=== PATIENT | male | born 1990 | race Hispanic/Latino ===

== ENCOUNTER 2018-10-25 01:54 | Emergency (ER) | payer OTHER ==
[~2018-10-25] VITALS: Ht 182.9 cm; Wt 108.9 kg
[2018-10-25] MEDS ORDERED: TETANUS/DIPHTHERIA TOX ADULT 0.5 ML SYR ONE (02:09)
[2018-10-25] MEDS ORDERED: TETANUS/DIPHTHERIA TOX ADULT 0.5 ML SYR IM ONE (02:15)
--- NOTE | 2018-10-25 02:50 | Diagnostic Imaging Report ---
CT BRAIN WO, CT CERVICAL SPINE WO HISTORY: Trauma COMPARISON: None. TECHNIQUE: Axial noncontrast CT images were obtained through the head and cervical spine. Coronal and sagittal reconstructions obtained from the axial data. One or more of the following dose reduction techniques were used: Automated exposure control, adjustment of the mA and/or kV according to patient size, and/or utilization of iterative reconstruction technique. DISCUSSION: HEAD CT: Scalp/Skull: Unremarkable. Brain sulci: Appropriate for patient's age. Ventricles: Normal in size and configuration. No hydrocephalus. Extra-axial spaces: No masses or fluid collections. Parenchyma: No abnormal densities. No masses, hemorrhage, or large vascular territory acute infarct. Dural sinuses: No abnormal densities. Sellar/Suprasellar region: Intact. Skull base: Intact. Incidental findings: None. CERVICAL SPINE CT: Cervical lordosis is straightened. There is no scoliosis or subluxation. No fractures, compression deformity, or destructive osseous lesions are seen. The craniocervical junction is intact. No gross spinal canal masses are seen. The paravertebral and paraspinal soft tissues are unremarkable. The disc spaces are preserved. Incidental findings: None. IMPRESSION: Head CT: No intracranial abnormalities. Cervical Spine CT: No acute osseous abnormalities in the cervical spine. Signed by: Dr. Malcolm Toro M.D. on 10/25/2018 2:46 AM
[2018-10-25] MEDS ORDERED: HYDROCODONE/APAP 10MG-325MG TAB ONE (03:06)
[2018-10-25] MEDS ORDERED: HYDROCODONE/APAP 10MG-325MG TAB PO ONE (03:15)
--- NOTE | 2018-10-25 03:28 | Diagnostic Imaging Report ---
Left ankle radiographs 3 views HISTORY: Pain. COMPARISON: None available. FINDINGS: Bones: Acute nondisplaced distal fibular oblique fracture. Fracture line extends above the level of the tibial plafond. Joints: The joint spaces are well-maintained. Soft tissues: The soft tissues appear unremarkable. IMPRESSION: Acute nondisplaced distal fibular oblique fracture. Signed by: Frank Lu DO on 10/25/2018 3:25 AM
--- NOTE | 2018-10-25 03:29 | Diagnostic Imaging Report ---
Left knee radiographs 3 views HISTORY: Pain. COMPARISON: None available. FINDINGS: Bones: No acute displaced fracture. Osseous alignment is within normal limits. Joints: The joint spaces are well-maintained. Soft tissues: The soft tissues appear unremarkable. IMPRESSION: No acute radiographic abnormality. Signed by: Frank Lu DO on 10/25/2018 3:26 AM
[2018-10-25] MEDS ORDERED: BACITRACIN ZINC 0.9GM TP ONE (03:57)
== END 2018-10-25 04:21 | disposition home or self-care (01) ==
LOC: ER 01:54
DX: S82.65XA Nondisplaced fracture of lateral malleolus of left fibula, initial encounter for closed fracture (principal); Y04.2XXA Assault by strike against or bumped into by another person, initial encounter; Y92.511 Restaurant or cafe as the place of occurrence of the external cause; Z23 Encounter for immunization
CPT/HCPCS: 70450; 72125; 90471; 90714; 99284

== ENCOUNTER 2019-01-02 15:59 | Outpatient (RCR) | payer OTHER | END 2019-01-04 | LOC: PT 15:59 | PROVIDERS: ATTEND Specialist | DX: S82.892A Other fracture of left lower leg, initial encounter for closed fracture (principal); M25.472 Effusion, left ankle; M25.672 Stiffness of left ankle, not elsewhere classified; M62.81 Muscle weakness (generalized); R26.2 Difficulty in walking, not elsewhere classified ==